=== PATIENT | female | born 1950 | race Caucasian/White ===

== ENCOUNTER 2019-02-23 07:46 | Day surgery (SDC) | payer MEDICARE, OTHER ==
[~2019-02-23 07:46] MED LIST: Lactated Ringers 1,000 ML IV SCH; Lidocaine 1%/Sod Bicarbonate in NS 8.4% 1 ML Syringe IDERM PRN; Sodium Chloride 0.9% 10 ML Syringe FLUSH PRN
--- NOTE | 2019-02-23 09:00 | PCM.PREANE ---
Preanesthetic Assessment - Anesthesia/Transfusion/Family Hx Anesthesia History: Prior Anesthesia Without Reaction Family History of Anesthesia Reaction: No Transfusion History: No Prior Transfusion(s) Intubation History: Unknown - Review of Systems General: No Symptoms Pulmonary: No Symptoms (ETOH: rarely) Cardiovascular: No Symptoms (HTN, High cholesterol) Gastrointestinal: No Symptoms (GERD) Neurological: No Symptoms (History of scoliosis-mid back pain noted) Other: Reports: None, Sinus Problem (Allergic rhinits, seasonal allergies), Depression, Anxiety - Physical Assessment NPO Status Date: 02/22/19 NPO Status Time: 23:00 Vital Signs: Last Vital Signs Temp 36.7 C 02/23/19 07:55 Pulse 80 02/23/19 07:55 Resp 16 02/23/19 07:55 BP 141/78 H 02/23/19 07:55 Pulse Ox 95 02/23/19 07:55 Height: 1.73 m Weight: 73.482 kg ASA Class: 2 Mental Status: Alert & Oriented x3 Airway Class: Mallampati = 2 Dentition: Reports: Normal Dentition, Caries Thyro-Mental Finger Breadths: 3 Mouth Opening Finger Breadths: 3 ROM/Head Extension: Full Lungs: Clear to Auscultation, Normal Respiratory Effort Cardiovascular: Regular Rate, Regular Rhythm, No Murmurs - Lab Values: All labs reviewed and noted and within acceptable ranges to proceed with scheduled procedure. - Allergies Allergies/Adverse Reactions: Allergies Allergy/AdvReac Type Severity Reaction Status Date / Time No Known Allergies Allergy Verified 02/22/19 10:32 - Anesthesia Plan Pre-Op Medication Ordered: None - Acknowledgements Anesthesia Type Planned: MAC Pt an Appropriate Candidate for the Planned Anesthesia: Yes Alternatives and Risks of Anesthesia Discussed w Pt/Guardian: Yes Pt/Guardian Understands and Agrees with Anesthesia Plan: Yes PreAnesthesia Questionnaire HEENT History: Reports: Allergic Rhinitis, Cataract, Hard of Hearing, Other ( See Below) Other HEENT History: wears glasses, hearing loss Cardiovascular History: Reports: Hypertension Respiratory History: Reports: None Gastrointestinal History: Reports: GERD Genitourinary History: Reports: Other (See Below) Other Genitourinary History: bladder surgery [employer] History: Reports: None Musculoskeletal History: Reports: Arthritis, Osteoarthritis Neurological History: Reports: None Psychiatric History: Reports: Anxiety, Depression Endocrine/Metabolic History: Reports: None Hematologic History: Reports: None Immunologic History: Reports: None Oncologic (Cancer) History: Reports: None Other Dermatologic History: groin abcess - Past Surgical History Head Surgeries/Procedures: Reports: None HEENT Surgical History: Reports: Cataract Surgery, Naso-Sinus Surgery Cardiovascular Surgical History: Reports: None Respiratory Surgical History: Reports: None GI Surgical History: Reports: Appendectomy, Colonoscopy Female Surgical History: Reports: Tubal Ligation Male Surgical History: Reports: None Endocrine Surgical History: Reports: None Neurological Surgical History: Reports: None Musculoskeletal Surgical History: Reports: None Oncologic Surgical History: Reports: None - SUBSTANCE USE Smoking Status *Q: Never Smoker Recreational Drug Use History: No - HOME MEDS Home Medications: Home Meds Biotin 10,000 mcg PO DAILY 02/22/19 [History] Calcium Carbonate/Vitamin D3 [Calcium 600-Vit D3 800 Tab] 1 tab PO DAILY [History] Escitalopram [Lexapro] 10 mg PO DAILY 02/22/19 [History] Esomeprazole Magnesium [Nexium] 20 mg PO DAILY 02/22/19 [History] Hydrochlorothiazide [Microzide] 12.5 mg PO DAILY 02/22/19 [History] Krill Oil 500 mg PO DAILY 02/22/19 [History] Lisinopril 20 mg PO DAILY 02/22/19 [History] Rosuvastatin [Crestor] 10 mg PO DAILY 02/22/19 [History] Vit A/Vit C/Vit E/Zinc/Copper [Preservision Areds Softgel] 2 cap PO DAILY [History] - CURRENT (IN HOUSE) MEDS Current Meds: Current Medications Lactated Ringer's (Ringers, Lactated) 1,000 mls @ 125 mls/hr IV ASDIRECTED ELI Stop: 02/23/19 23:00 Last Admin: 02/23/19 08:00 Dose: 125 mls/hr Lidocaine/Sodium Bicarbonate (Buffered Lidocaine 1% In Ns 8.4%) 0.25 ml IDERM ONETIME PRN PRN Reason: Prior to IV Start Stop: 02/23/19 18:00 Last Admin: 02/23/19 08:00 Dose: 0.25 ml Sodium Chloride (Saline Flush) 10 ml FLUSH ASDIRECTED PRN PRN Reason: Keep Vein Open Stop: 02/23/19 18:00
[2019-02-23] MEDS ORDERED: Lidocaine 1% 4 ML ONE (09:42)
[2019-02-23] MEDS ORDERED: Propofol 200 MG/20 ML SDV ONE ×3 (09:42→10:36)
[2019-02-23] MEDS ORDERED: Lactated Ringers 1,000 ML ONE (10:01)
[2019-02-23] MEDS ORDERED: fentaNYL 100 MCG/2 ML SDV ONE (10:18)
--- NOTE | 2019-02-23 11:25 | PCM48HPAN ---
Post Anesthesia Note - EVALUATION WITHIN 48HRS OF ANESTHETIC Vital Signs in Normal Range: Yes Patient Participated in Evaluation: Yes Respiratory Function Stable: Yes Airway Patent: Yes Cardiovascular Function Stable: Yes Hydration Status Stable: Yes Pain Control Satisfactory: Yes Nausea and Vomiting Control Satisfactory: Yes Mental Status Recovered: Yes Vital Signs: Last Vital Signs Temp 36.7 C 02/23/19 07:55 Pulse 80 02/23/19 07:55 Resp 16 02/23/19 07:55 BP 141/78 H 02/23/19 07:55 Pulse Ox 95 02/23/19 07:55 - COMMENTS/OBSERVATIONS Free Text/Narrative:: no anesthesia complications noted
--- NOTE | 2019-02-23 11:38 | PCM.PRNOTE ---
- Free Text/Narrative Note: Procedure(s): diagnostic esophagogastroduodenoscopy and screening colonoscopy Complications: none- abdomen felt rigid during colonoscopy so a plain film of the abdomen was ordered to evaluate for pneumoperitoneum; but after de- sufflation and conclusion of the procedure the abdomen was once again soft and not distended. Detailed report: The patient was placed in left lateral decubitus position and underwent monitored anesthesia care and a bite block was placed. The endoscope was inserted into the mouth and passed easily into the esophagus. Coordinated peristalsis was noted. The EG junction was wide open, and a sizeable hiatal hernia was appreciated. There was no discoloration, esophagitis, gastritis, ulcers or other lesions noted. The scope was passed as far as the first portion of the duodenum, which appeared normal. The scope was then withdrawn. Next, the anus was inspected visually, and multiple skin tags noted. There was a palpable small pinhead type lesion in the anal canal at posterior midline but otherwise normal rectal exam. The colonoscope was inserted and advanced to the cecum. At this portion of the colon, there was dense fecal matter which made adequate examination of the mucosa impossible. From the hepatic flexure proximal the prep was fair and visualization was adequate with use of irrigation. On retraction of the scope, there were scattered small dierticula noted in the transverse colon, and larger diverticula in the sigmoid. No polyps or other lesions were noted. On retroflexion, there did not appear to be significant hemorrhoidal disease. After removal of the colonoscope, a rigid anoscope was inserted in order to visualize the pinhead lesion in the anal canal. The colonoscope was then fed through the anoscope and endoscopic jumbo forceps were used to remove the lesion. palpation confirmed successful removal. The patient tolerated the procedure well and had no complaints of pain after awakening from sedation. Ritchie Stevens MD General Surgery
--- NOTE | 2019-02-23 11:58 | CR ---
Abdomen: Upright view of the abdomen was obtained. Comparison: No prior abdominal imaging. Findings: No free air is seen. Bowel gas pattern appears within normal limits. Scoliosis is noted within the spine. Mild degenerative joint space narrowing is seen within both hips. No discrete soft tissue abnormality is seen. Impression: 1. No free air. 2. Nonspecific bowel gas pattern. Diagnostic code #2
== END 2019-02-23 13:33 | disposition home or self-care (01) ==
LOC: JD.SDS 07:46
PROVIDERS: ATTEND Surgery
DX: Z12.11 Encounter for screening for malignant neoplasm of colon (principal); K21.9 Gastro-esophageal reflux disease without esophagitis; K57.30 Diverticulosis of large intestine without perforation or abscess without bleeding; K62.89 Other specified diseases of anus and rectum; I10 Essential (primary) hypertension; M19.90 Unspecified osteoarthritis, unspecified site; F32.9 Major depressive disorder, single episode, unspecified; F41.9 Anxiety disorder, unspecified
CPT/HCPCS: 00813; 74018; 74018-26; J2001; J2704; J3010; J7120

== ENCOUNTER 2024-07-07 08:42 | Emergency (ER) | payer MEDICARE, OTHER ==
[2024-07-07] MEDS: ALPRAZolam 0.25 MG Tab PO ONE (09:53)
== END 2024-07-07 10:50 | disposition home or self-care (01) ==
LOC: JD.ED 08:42
DX: R09.89 Other specified symptoms and signs involving the circulatory and respiratory systems (principal); R20.2 Paresthesia of skin; I10 Essential (primary) hypertension; E78.00 Pure hypercholesterolemia, unspecified; Z79.899 Other long term (current) drug therapy
CPT/HCPCS: 71045; 99284; A9270; 99283

== ENCOUNTER 2024-07-15 09:58 | Day surgery (SDC) | payer MEDICARE, OTHER ==
[2024-07-15] MEDS: Tetracaine HCl/PF 0.5% 4 ML Bottle EYEBOTH SCH (09:55)
[2024-07-15] MEDS: Phenylephrine 2.5% Ophth Soln 2 ML Bot EYERT SCH (09:55)
[2024-07-15] MEDS: Cefuroxime 10 MG/ML SYRINGE EYERT SCH (09:56)
[2024-07-15] MEDS: Lidocaine 1% PF 2 ML SDV INJECT SCH (09:56)
[2024-07-15] MEDS: Pilocarpine 4% Ophth Soln 15 ML Bot EYERT SCH (09:56)
[2024-07-15] MEDS: Brimonidine 0.2% Ophth Soln 5 ML Bottle EYERT SCH (09:56)
[2024-07-15] MEDS: Polymyxin B/Trimethoprim 10 ML Bottle EYERT SCH (09:56)
[2024-07-15] MEDS: Tropicamide 1% Ophth Soln 3 ML Bottle EYERT SCH (11:19)
== END 2024-07-15 13:01 | disposition home or self-care (01) ==
LOC: JD.SDS 09:58
PROVIDERS: ATTEND Ophthalmology
DX: H25.813 Combined forms of age-related cataract, bilateral (principal); H21.81 Floppy iris syndrome; H21.41 Pupillary membranes, right eye; H18.593 Other hereditary corneal dystrophies, bilateral; H18.413 Arcus senilis, bilateral; H16.103 Unspecified superficial keratitis, bilateral; H16.223 Keratoconjunctivitis sicca, not specified as Sjogren's, bilateral; I10 Essential (primary) hypertension; E78.2 Mixed hyperlipidemia; Z79.899 Other long term (current) drug therapy
CPT/HCPCS: 66982; A9270; J0697; J3490

== ENCOUNTER 2024-10-14 08:46 | Day surgery (SDC) | payer MEDICARE, OTHER ==
[2024-10-14] MEDS: Polymyxin B/Trimethoprim 10 ML Bottle EYELF SCH (09:25)
[2024-10-14] MEDS: Brimonidine 0.2% Ophth Soln 5 ML Bottle EYELF SCH (09:36)
[2024-10-14] MEDS: Phenylephrine 2.5% Ophth Soln 2 ML Bot EYELF SCH (09:46)
[2024-10-14] MEDS: Tropicamide 1% Ophth Soln 3 ML Bottle EYELF SCH (09:53)
[2024-10-14] MEDS: Tetracaine HCl/PF 0.5% 4 ML Bottle EYEBOTH SCH (10:34)
[2024-10-14] MEDS: Lidocaine 1% PF 2 ML SDV INJECT SCH (10:51)
[2024-10-14] MEDS: Cefuroxime 10 MG/ML SYRINGE EYELF SCH (11:04)
[2024-10-14] MEDS: Pilocarpine 4% Ophth Soln 15 ML Bot EYELF SCH (11:05)
== END 2024-10-14 11:13 | disposition home or self-care (01) ==
LOC: JD.SDS 08:46
PROVIDERS: ATTEND Ophthalmology
DX: H25.812 Combined forms of age-related cataract, left eye (principal); H21.81 Floppy iris syndrome; H21.42 Pupillary membranes, left eye; H16.103 Unspecified superficial keratitis, bilateral; H16.223 Keratoconjunctivitis sicca, not specified as Sjogren's, bilateral; H18.593 Other hereditary corneal dystrophies, bilateral; I10 Essential (primary) hypertension; E78.2 Mixed hyperlipidemia; Z79.899 Other long term (current) drug therapy
CPT/HCPCS: A9270-GY; J3490